=== PATIENT | male | born 1960 | race Caucasian/White ===

== ENCOUNTER 2022-08-24 11:18 | Inpatient (IN) | payer MEDICARE, OTHER ==
[2022-08-24] VITALS (23 sets, daily range): BP systolic 130–176; BP diastolic 90–165
[~2022-08-24] VITALS: Ht 188 cm; Wt 94.8 kg
[2022-08-24] MEDS ORDERED: SODIUM CHLORIDE 0.9% 1000ML 1,000 ML IV STA (11:39)
[2022-08-24] MEDS ORDERED: DILTIAZEM HCL 5 MG/ML 5 ML VIAL IV ONE ×2 (11:44→12:47)
[2022-08-24 12:31] LABS: BASOPHILS % 0.4 % (0.0-1.0); EOSINOPHILS % 0.1 % (0.0-6.0); HEMATOCRIT 39.9 % (38.2-49.6); HEMOGLOBIN 13.2 g/dL (14.0-18.0); LYMPHOCYTES # (AUTO) 1.3 (1.0-3.2); LYMPHOCYTES % 15.6 % (18.0-39.1); MEAN CORPUSCULAR HEMOGLOBIN 28.4 pg (28-32); MEAN CORPUSCULAR HGB CONC 33.1 g/dL (31-35); MEAN CORPUSCULAR VOLUME 85.8 fL (81-99); MONOCYTES # (AUTO) 0.4 (0.2-0.8); MONOCYTES % 5.1 % (4.4-11.3); NEUTROPHILS # (AUTO) 6.6 (2.1-6.9); NEUTROPHILS % 78.4 % (38.7-80.0); PLATELET COUNT 223 x10e3/uL (140-360); RED BLOOD COUNT 4.65 x10e6/uL (4.3-5.7); RED CELL DISTRIBUTION WIDTH 13.1 % (11.7-14.4)
[2022-08-24] MEDS ORDERED: MIDAZOLAM HCL 2 MG/2 ML VIAL ONE ×2 (12:38→19:45)
[2022-08-24] MEDS ORDERED: ETOMIDATE 2 MG/ML 10 ML INJ IV ONE (12:38)
[2022-08-24] MEDS ORDERED: VECURONIUM BROMIDE FOR INJ 20 MG VIAL ONE (12:38)
[2022-08-24] MEDS ORDERED: WATER STERILE 10 ML VIAL ONE (12:38)
[2022-08-24] MEDS ORDERED: SUCCINYLCHOLINE CHLORIDE 20 MG/ML 10ML VIAL ONE (12:38)
[2022-08-24 12:53] LABS: INR 1.07; PARTIAL THROMBOPLASTIN TIME 29.6 seconds (23.8-35.5); PROTHROMBIN TIME 14.9 seconds (11.9-14.5)
[2022-08-24 12:56] LABS: ALBUMIN 3.8 g/dL (3.5-5.0); ALBUMIN/GLOBULIN RATIO 1.5 (0.8-2.0); CALCIUM 9.1 mg/dL (8.4-10.2); CREATININE, SERUM 0.81 mg/dL (0.72-1.25); MAGNESIUM 1.6 MG/DL (1.3-2.1)
[2022-08-24 13:03] LABS: CREATINE KINASE MB 5.8 ng/mL (0-5.0)
[2022-08-24] MEDS ORDERED: FUROSEMIDE INJ 10 MG/ML 2 ML VIAL IV ONE (13:15)
[2022-08-24] MEDS ORDERED: DILTIAZEM HCL 60 MG TAB PO ONE (13:15)
[2022-08-24] MEDS ORDERED: DIGOXIN INJ 0.25 MG/ML 2 ML AMP IV ONE (13:30)
[2022-08-24] MEDS: ENOXAPARIN SODIUM INJ 100 MG/ML SYR SC SCH (13:50)
[2022-08-24] MEDS ORDERED: ONDANSETRON HCL INJ 2MG/ML 2ML 2 MG/ML VIAL IV PRN ×2 (14:15→15:15)
[2022-08-24 15:12] LABS: CLARITY,URINE CLEAR (CLEAR); COLOR,URINE YELLOW (YELLOW); LEUKOCYTE ESTERASE ,URINE NEGATIVE (NEGATIVE); NITRITE,URINE NEGATIVE (NEGATIVE)
[2022-08-24 15:13] LABS: KETONES,URINE NEGATIVE (NEGATIVE); PROTEIN,URINE DIPSTICK NEGATIVE (NEGATIVE); RBC,URINE 0-5 /HPF (0-5); URINE UROBILINOGEN 0.2 mg/dL (0.2 - 1); WBC,URINE (MAN) 0-5 /HPF (0-5)
[2022-08-24 15:14] LABS: AMPHETAMINES SCREEN,URINE NEGATIVE (NEGATIVE); PHENCYCLIDINE SCREEN,URINE NEGATIVE (NEGATIVE)
[2022-08-24 15:15] LABS: BENZODIAZEPINES SCREEN,URINE NEGATIVE (NEGATIVE)
[2022-08-24] MEDS ORDERED: TRAMADOL HCL 50 MG TAB PO PRN (15:15)
[2022-08-24] MEDS ORDERED: METOPROLOL TARTRATE INJ 1 MG/ML VIAL IV PRN (15:15)
[2022-08-24] MEDS ORDERED: ACETAMINOPHEN 325 MG TAB PO PRN ×2 (15:15→23:45)
[2022-08-24] MEDS ORDERED: FENTANYL 50 MCG/HR PATCH TOP PRN (16:21)
[2022-08-24] MEDS: POTASSIUM CHLORIDE 10MEQ EA PO SCH (17:19)
[2022-08-24] MEDS ORDERED: FUROSEMIDE INJ 10 MG/ML 2 ML VIAL IV SCH (18:00)
[2022-08-24] MEDS ORDERED: MAGNESIUM SULFATE 2GM/50ML 50 ML IV ONE (18:15)
[2022-08-24] MEDS ORDERED: METOPROLOL TARTRATE 25 MG TAB PO ONE (18:45)
[2022-08-24] MEDS ORDERED: AMIODARONE HCL 150 MG in DEXTROSE 5% 100ML 100 ML IV SCH (19:45)
[2022-08-24] MEDS ORDERED: AMIODARONE HCL 150 MG/100 ML BAG IV ONE (19:45)
[2022-08-24] MEDS: AMIODARONE 900MG 900 MG in Premix Bag 1 BAG IV SCH (20:15)
[2022-08-24 21:10] LABS: ANION GAP 17.5 mmol/L (8-16); CREATININE, SERUM 0.81 mg/dL (0.72-1.25); POTASSIUM 3.5 mmol/L (3.5-5.1)
[2022-08-24] MEDS ORDERED: POTASSIUM CHLORIDE 10MEQ/100ML 100 ML IV ONE (23:37)
[2022-08-24] MEDS ORDERED: GUAIFENESIN/DEXTROMETHORPHAN LIQD 5 ML UDC PO PRN (23:45)
[2022-08-24] MEDS ORDERED: MAGNESIUM/ALUMINUM/SIMETHICONE 30 ML UDC PO PRN (23:45)
[2022-08-24] MEDS ORDERED: DOCUSATE SODIUM 100 MG CAP PO PRN (23:45)
[2022-08-24] MEDS ORDERED: MELATONIN 3 MG TAB PO PRN (23:45)
[2022-08-24] MEDS ORDERED: METOCLOPRAMIDE HCL 10 MG/2ML VIAL IV PRN (23:45)
[2022-08-24] MEDS ORDERED: DEXTROSE 50% SYRINGE 50 ML IV PRN (23:45)
[2022-08-25] VITALS (91 sets, daily range): BP systolic 82–171; BP diastolic 52–132
[2022-08-25] MEDS: Doxycycline IV 100 MG in SODIUM CHLORIDE 0.9% 100 ML IV SCH ×2 (00:54→12:40)
[2022-08-25] MEDS: ENOXAPARIN SODIUM INJ 100 MG/ML SYR SC SCH ×2 (00:57→13:35)
[2022-08-25] MEDS ORDERED: MAGNESIUM SULF 1GRAM/DEXTROSE 100 ML IV ONE ×2 (01:43→01:45)
[2022-08-25] MEDS ORDERED: POTASSIUM CHLORIDE 20MEQ/100ML 100 ML ONE (01:44)
[2022-08-25] MEDS ORDERED: POTASSIUM CHLORIDE 20MEQ/100ML 100 ML IV ONE (01:45)
[2022-08-25] MEDS ORDERED: MIDAZOLAM HCL 2 MG/2 ML VIAL ONE ×3 (02:14→12:11)
[2022-08-25] MEDS ORDERED: AMIODARONE HCL 150 MG/100 ML BAG IV ONE (03:45)
[2022-08-25 05:07] LABS: BASOPHILS % 0.2 % (0.0-1.0); HEMATOCRIT 43.1 % (38.2-49.6); HEMOGLOBIN 13.4 g/dL (14.0-18.0); LYMPHOCYTES # (AUTO) 1.2 (1.0-3.2); LYMPHOCYTES % 10.7 % (18.0-39.1); MEAN CORPUSCULAR HEMOGLOBIN 28.4 pg (28-32); MEAN CORPUSCULAR HGB CONC 31.1 g/dL (31-35); MONOCYTES # (AUTO) 0.6 (0.2-0.8); MONOCYTES % 5.3 % (4.4-11.3); NEUTROPHILS # (AUTO) 9.2 (2.1-6.9); NEUTROPHILS % 83.3 % (38.7-80.0); PLATELET COUNT 232 x10e3/uL (140-360); RED BLOOD COUNT 4.72 x10e6/uL (4.3-5.7); RED CELL DISTRIBUTION WIDTH 12.9 % (11.7-14.4)
[2022-08-25 05:19] LABS: MEAN CORPUSCULAR VOLUME 91.3 fL (81-99)
[2022-08-25 05:25] LABS: ALBUMIN 3.7 g/dL (3.5-5.0); ALBUMIN/GLOBULIN RATIO 1.4 (0.8-2.0); ANION GAP 18.1 mmol/L (8-16); CALCIUM 8.8 mg/dL (8.4-10.2); CREATININE, SERUM 0.95 mg/dL (0.72-1.25)
[2022-08-25 05:27] LABS: POTASSIUM 5.1 mmol/L (3.5-5.1)
[2022-08-25 05:39] LABS: CHOL/HDL RATIO 3.1 (3.9-4.7)
[2022-08-25 06:11] LABS: MAGNESIUM 2.2 MG/DL (1.3-2.1)
[2022-08-25 06:20] LABS: CREATINE KINASE MB 2.9 ng/mL (0-5.0)
[2022-08-25 06:33] LABS: FREE THYROXINE INDEX 2.1081 (1.4-3.8); THYROID STIMULATING HORMONE 0.999 uIU/mL (0.350-4.940)
[2022-08-25] MEDS: MULTIVITAMINS/MINERALS TAB PO SCH (07:35)
[2022-08-25] MEDS: POTASSIUM CHLORIDE 10MEQ EA PO SCH ×2 (07:41→13:36)
[2022-08-25] MEDS: INSULIN REGULAR, HUMAN 100 UNIT/1 ML SQ SCH ×3 (07:54→16:42)
[2022-08-25] MEDS ORDERED: ASPIRIN 81 MG ENTERIC COATED PO SCH (09:00)
[2022-08-25] MEDS ORDERED: METOPROLOL TARTRATE 25 MG TAB PO SCH (09:00)
[2022-08-25] MEDS: LIDOCAINE 2GM/D5W 500ML 500 ML IV SCH (09:59)
[2022-08-25] MEDS: PROPOFOL IV EMULSION 10MG/ML 100 ML IV PRN ×2 (10:01→21:15)
[2022-08-25] MEDS ORDERED: SODIUM CHLORIDE 0.9% 1000ML 1,000 ML ONE (11:06)
[2022-08-25 13:14] LABS: ABG HCO3 26 mmol/L (22-26); ABG PCO2 39 mmHg (35-45); ABG PH 7.43 (7.35-7.45); ABG PO2 183 mmHg (80-105); ABG TCO2 27
[2022-08-25] MEDS: AMIODARONE 900MG 900 MG in Premix Bag 1 BAG IV SCH (17:17)
[2022-08-25] MEDS ORDERED: ACETAMINOPHEN 650 MG SUPP PR PRN (18:00)
[2022-08-25] MEDS: METOPROLOL TARTRATE 25 MG TAB PO SCH (20:48)
[2022-08-26] VITALS (93 sets, daily range): BP systolic 78–140; BP diastolic 63–104
[2022-08-26] MEDS: Doxycycline IV 100 MG in SODIUM CHLORIDE 0.9% 100 ML IV SCH ×3 (00:02→23:43)
[2022-08-26] MEDS: ENOXAPARIN SODIUM INJ 100 MG/ML SYR SC SCH ×2 (00:55→13:28)
[2022-08-26] MEDS ORDERED: SODIUM CHLORIDE 0.9% 1000ML 250 ML IV ONE (01:45)
[2022-08-26] MEDS ORDERED: SODIUM CHLORIDE 0.9% 500ML 500 ML ONE (02:02)
[2022-08-26] MEDS: FENTANYL 2000MCG/NS 250 250 ML IV PRN ×2 (03:26→19:48)
[2022-08-26] MEDS: INSULIN REGULAR, HUMAN 100 UNIT/1 ML SQ SCH ×4 (06:00→17:26)
[2022-08-26 07:03] LABS: BASOPHILS % 0.2 % (0.0-1.0); EOSINOPHILS % 0.1 % (0.0-6.0); HEMATOCRIT 44.2 % (38.2-49.6); HEMOGLOBIN 13.7 g/dL (14.0-18.0); LYMPHOCYTES # (AUTO) 2.3 (1.0-3.2); MEAN CORPUSCULAR HEMOGLOBIN 28.6 pg (28-32); MEAN CORPUSCULAR VOLUME 92.3 fL (81-99); MONOCYTES # (AUTO) 0.9 (0.2-0.8); NEUTROPHILS # (AUTO) 7.8 (2.1-6.9); NEUTROPHILS % 70.3 % (38.7-80.0); PLATELET COUNT 217 x10e3/uL (140-360); RED BLOOD COUNT 4.79 x10e6/uL (4.3-5.7); RED CELL DISTRIBUTION WIDTH 13.2 % (11.7-14.4)
[2022-08-26 07:23] LABS: ALBUMIN 3.5 g/dL (3.5-5.0); ALBUMIN/GLOBULIN RATIO 1.4 (0.8-2.0); ANION GAP 17.4 mmol/L (8-16); CALCIUM 8.5 mg/dL (8.4-10.2); MAGNESIUM 2.1 MG/DL (1.3-2.1); POTASSIUM 4.4 mmol/L (3.5-5.1)
[2022-08-26 07:38] LABS: CREATININE, SERUM 1.7 mg/dL (0.72-1.25)
[2022-08-26 07:57] LABS: ABG HCO3 23 mmol/L (22-26); ABG PCO2 39 mmHg (35-45); ABG PH 7.38 (7.35-7.45); ABG PO2 94 mmHg (80-105); ABG TCO2 24
[2022-08-26] MEDS ORDERED: FUROSEMIDE INJ 10 MG/ML 4 ML VIAL IV ONE (08:45)
[2022-08-26] MEDS: MULTIVITAMINS/MINERALS TAB PO SCH (08:48)
[2022-08-26] MEDS: ASPIRIN 81 MG CHEW TAB PO SCH (08:48)
[2022-08-26] MEDS: METOPROLOL TARTRATE 25 MG TAB PO SCH ×2 (08:50→20:47)
[2022-08-26] MEDS ORDERED: FUROSEMIDE INJ 10 MG/ML 4 ML VIAL ONE (08:57)
[2022-08-26] MEDS: POTASSIUM CHLORIDE 10MEQ EA PO SCH ×2 (09:00→14:23)
[2022-08-26] MEDS: LIDOCAINE 2GM/D5W 500ML 500 ML IV SCH ×2 (09:45→17:10)
[2022-08-26] MEDS: PROPOFOL IV EMULSION 10MG/ML 100 ML IV PRN ×2 (11:06→17:10)
[2022-08-26] MEDS ORDERED: LACTATED RINGER'S 1,000 ML INJ ONE (14:45)
[2022-08-27] VITALS (93 sets, daily range): BP systolic 116–294; BP diastolic 13–136
[2022-08-27] MEDS: INSULIN REGULAR, HUMAN 100 UNIT/1 ML SQ SCH ×4 (00:26→17:54)
[2022-08-27] MEDS: ENOXAPARIN SODIUM INJ 100 MG/ML SYR SC SCH (01:05)
[2022-08-27] MEDS: PROPOFOL IV EMULSION 10MG/ML 100 ML IV PRN ×2 (02:35→08:05)
[2022-08-27] MEDS ORDERED: AMIODARONE 900MG 500 ML IV ONE (03:31)
[2022-08-27 06:39] LABS: BASOPHILS % 0.2 % (0.0-1.0); EOSINOPHILS % 0.2 % (0.0-6.0); HEMATOCRIT 40.6 % (38.2-49.6); HEMOGLOBIN 13.3 g/dL (14.0-18.0); LYMPHOCYTES # (AUTO) 1.5 (1.0-3.2); LYMPHOCYTES % 16.5 % (18.0-39.1); MEAN CORPUSCULAR HEMOGLOBIN 28.4 pg (28-32); MEAN CORPUSCULAR HGB CONC 32.8 g/dL (31-35); MEAN CORPUSCULAR VOLUME 86.6 fL (81-99); MONOCYTES # (AUTO) 0.7 (0.2-0.8); MONOCYTES % 8.3 % (4.4-11.3); NEUTROPHILS # (AUTO) 6.5 (2.1-6.9); NEUTROPHILS % 74.3 % (38.7-80.0); PLATELET COUNT 184 x10e3/uL (140-360); RED BLOOD COUNT 4.69 x10e6/uL (4.3-5.7); RED CELL DISTRIBUTION WIDTH 13.2 % (11.7-14.4)
[2022-08-27 07:04] LABS: ALBUMIN 3.3 g/dL (3.5-5.0); ALBUMIN/GLOBULIN RATIO 1.3 (0.8-2.0); ANION GAP 12.9 mmol/L (8-16); CALCIUM 8.1 mg/dL (8.4-10.2); CREATININE, SERUM 1.04 mg/dL (0.72-1.25); POTASSIUM 3.9 mmol/L (3.5-5.1)
[2022-08-27 07:16] LABS: ABG PCO2 39 mmHg (35-45); ABG PH 7.42 (7.35-7.45)
[2022-08-27 07:17] LABS: ABG HCO3 25 mmol/L (22-26); ABG PO2 123 mmHg (80-105); ABG TCO2 26
[2022-08-27] MEDS: MULTIVITAMINS/MINERALS TAB PO SCH (09:00)
[2022-08-27] MEDS: ASPIRIN 81 MG CHEW TAB PO SCH (09:31)
[2022-08-27] MEDS: METOPROLOL TARTRATE 25 MG TAB PO SCH ×2 (09:32→20:36)
[2022-08-27] MEDS: KCL 20 MEQ PACKET/ ORAL SOLN PO SCH ×2 (10:00→17:00)
[2022-08-27] MEDS ORDERED: FENTANYL 25 MCG/HR PATCH TOP SCH (10:15)
[2022-08-27 10:45] LABS: ABG HCO3 25 mmol/L (22-26); ABG PCO2 36 mmHg (35-45); ABG PH 7.45 (7.35-7.45); ABG PO2 114 mmHg (80-105); ABG TCO2 26
[2022-08-27] MEDS ORDERED: POTASSIUM CHLORIDE 10MEQ/100ML 100 ML IV ONE (11:30)
[2022-08-27] MEDS: Doxycycline IV 100 MG in SODIUM CHLORIDE 0.9% 100 ML IV SCH (12:17)
[2022-08-27] MEDS ORDERED: MAGNESIUM SULF 1GRAM/DEXTROSE 100 ML IV ONE (12:30)
[2022-08-27] MEDS ORDERED: CEPACOL SORE THROAT LOZENGES PO PRN (14:15)
[2022-08-27] MEDS ORDERED: HYDROMORPHONE 1MG/1ML INJ IV PRN (14:45)
[2022-08-27] MEDS ORDERED: FENTANYL 25 MCG/HR PATCH TOP ONE (15:30)
[2022-08-27] MEDS: POTASSIUM CHLORIDE 20MEQ/100ML 200 ML IV PRN (17:38)
[2022-08-27] MEDS: FUROSEMIDE INJ 10 MG/ML 4 ML VIAL IV SCH (17:38)
[2022-08-27] MEDS: Morphine 2mg Syringe 2 MG/ML SYR IV PRN (17:38)
[2022-08-27] MEDS ORDERED: MAGNESIUM SULFATE 2GM/50ML 50 ML IV ONE (19:00)
[2022-08-27] MEDS ORDERED: SODIUM CHLORIDE 0.9% 1000ML 1,000 ML IV SCH (23:55)
[2022-08-28] VITALS (91 sets, daily range): BP systolic 95–205; BP diastolic 49–128
[2022-08-28] MEDS: Doxycycline IV 100 MG in SODIUM CHLORIDE 0.9% 100 ML IV SCH ×2 (00:28→13:35)
[2022-08-28] MEDS: Morphine 2mg Syringe 2 MG/ML SYR IV PRN (03:38)
[2022-08-28] MEDS ORDERED: FAMOTIDINE 20 MG/2 ML VIAL IV STA (04:41)
[2022-08-28 04:56] LABS: BASOPHILS % 0.2 % (0.0-1.0); EOSINOPHILS % 0.1 % (0.0-6.0); HEMATOCRIT 44.2 % (38.2-49.6); HEMOGLOBIN 13.6 g/dL (14.0-18.0); LYMPHOCYTES # (AUTO) 1.4 (1.0-3.2); LYMPHOCYTES % 14.4 % (18.0-39.1); MEAN CORPUSCULAR HEMOGLOBIN 28.5 pg (28-32); MEAN CORPUSCULAR HGB CONC 30.8 g/dL (31-35); MEAN CORPUSCULAR VOLUME 92.5 fL (81-99); MONOCYTES # (AUTO) 0.8 (0.2-0.8); MONOCYTES % 8.3 % (4.4-11.3); NEUTROPHILS # (AUTO) 7.3 (2.1-6.9); NEUTROPHILS % 76.6 % (38.7-80.0); PLATELET COUNT 173 x10e3/uL (140-360); RED BLOOD COUNT 4.78 x10e6/uL (4.3-5.7); RED CELL DISTRIBUTION WIDTH 12.7 % (11.7-14.4)
[2022-08-28 05:17] LABS: ALBUMIN 3.5 g/dL (3.5-5.0); ALBUMIN/GLOBULIN RATIO 1.3 (0.8-2.0); ANION GAP 15.9 mmol/L (8-16); CALCIUM 8.3 mg/dL (8.4-10.2); CREATININE, SERUM 0.77 mg/dL (0.72-1.25); MAGNESIUM 2.1 MG/DL (1.3-2.1); PHOSPHORUS 2.6 MG/DL (2.3-4.7); POTASSIUM 3.9 mmol/L (3.5-5.1)
[2022-08-28] MEDS: INSULIN REGULAR, HUMAN 100 UNIT/1 ML SQ SCH ×4 (06:00→18:00)
[2022-08-28] MEDS: FUROSEMIDE INJ 10 MG/ML 4 ML VIAL IV SCH ×2 (06:12→18:01)
[2022-08-28] MEDS ORDERED: PROPOFOL IV EMULSION 10MG/ML 100 ML ONE (07:34)
[2022-08-28] MEDS ORDERED: FENTANYL 2000MCG/NS 250 250 ML ONE (07:35)
[2022-08-28 08:28] LABS: ABG HCO3 27 mmol/L (22-26); ABG PCO2 39 mmHg (35-45); ABG PH 7.45 (7.35-7.45); ABG PO2 111 mmHg (80-105); ABG TCO2 28
[2022-08-28] MEDS: ASPIRIN 81 MG CHEW TAB PO SCH (08:33)
[2022-08-28] MEDS: METOPROLOL TARTRATE 25 MG TAB PO SCH ×2 (08:33→21:00)
[2022-08-28] MEDS: KCL 20 MEQ PACKET/ ORAL SOLN PO SCH ×2 (08:34→16:02)
[2022-08-28] MEDS: MULTIVITAMINS/MINERALS TAB PO SCH (08:34)
[2022-08-28] MEDS: LIDOCAINE 2GM/D5W 500ML 500 ML IV SCH (09:14)
[2022-08-28] MEDS: PROPOFOL IV EMULSION 10MG/ML 100 ML IV PRN ×5 (10:14→20:39)
[2022-08-28] MEDS ORDERED: MIDAZOLAM HCL 2 MG/2 ML VIAL ONE (12:09)
[2022-08-28] MEDS ORDERED: VERAPAMIL HCL 2.5 MG/ML 2 ML VIAL ONE (12:09)
[2022-08-28] MEDS ORDERED: HEPARIN SOD (PORCINE) 1000 UNIT/ML 30ML ONE (12:09)
[2022-08-28] MEDS ORDERED: LIDOCAINE HCL 1% LOCAL INJ 20 ML VIAL ONE (12:10)
[2022-08-28] MEDS ORDERED: IOPAMIDOL 370 MG/ML 100 ML INFUS..BTL INJ ONE (12:10)
[2022-08-28] MEDS ORDERED: FENTANYL CITRATE/PF 100MCG/2 ML INJ ONE (12:10)
[2022-08-28] MEDS ORDERED: HEPARIN SOD/SOD CHLORIDE 2,000 ML ONE (12:10)
[2022-08-28] MEDS ORDERED: NITROGLYCERIN/D5W 200 MCG/ML 250 ML ONE (12:10)
[2022-08-28] MEDS ORDERED: AMIODARONE 900MG 900 MG in Premix Bag 1 BAG IV SCH ×2 (20:30→20:45)
[2022-08-28] MEDS ORDERED: AMIODARONE 900MG 500 ML IV ONE (20:31)
[2022-08-28] MEDS ORDERED: MIDAZOLAM HCL 2 MG/2 ML VIAL IV STA (23:30)
[2022-08-29] VITALS (88 sets, daily range): BP systolic 79–188; BP diastolic 46–167
[2022-08-29] MEDS ORDERED: MIDAZOLAM HCL 2 MG/2 ML VIAL IV SCH
[2022-08-29 00:43] LABS: CALCIUM 7.7 mg/dL (8.4-10.2); MAGNESIUM 1.6 MG/DL (1.3-2.1)
[2022-08-29] MEDS: MIDAZOLAM HCL 5MG/ML 10ML VIAL 100 ML IV PRN ×2 (01:01→06:21)
[2022-08-29] MEDS ORDERED: MAGNESIUM SULFATE 2GM/50ML 50 ML IV ONE ×2 (02:00→04:15)
[2022-08-29] MEDS ORDERED: POTASSIUM CHLORIDE 20MEQ/100ML 100 ML IV ONE (02:00)
[2022-08-29] MEDS ORDERED: CALCIUM GLUC 1 G/50 ML NACL 50 ML IV ONE (02:00)
[2022-08-29] MEDS: FENTANYL 2000MCG/NS 250 250 ML IV PRN (03:33)
[2022-08-29] MEDS: POTASSIUM CHLORIDE 20MEQ/100ML 100 ML IV SCH ×3 (04:31→10:22)
[2022-08-29 05:38] LABS: BASOPHILS % 0.1 % (0.0-1.0); EOSINOPHILS % 0.3 % (0.0-6.0); HEMATOCRIT 38.4 % (38.2-49.6); HEMOGLOBIN 12.8 g/dL (14.0-18.0); LYMPHOCYTES # (AUTO) 1.1 (1.0-3.2); LYMPHOCYTES % 12.2 % (18.0-39.1); MEAN CORPUSCULAR HEMOGLOBIN 28.6 pg (28-32); MEAN CORPUSCULAR HGB CONC 33.3 g/dL (31-35); MEAN CORPUSCULAR VOLUME 85.7 fL (81-99); MONOCYTES # (AUTO) 0.7 (0.2-0.8); MONOCYTES % 7.1 % (4.4-11.3); NEUTROPHILS # (AUTO) 7.4 (2.1-6.9); NEUTROPHILS % 79.7 % (38.7-80.0); PLATELET COUNT 165 x10e3/uL (140-360); RED BLOOD COUNT 4.48 x10e6/uL (4.3-5.7)
[2022-08-29 06:00] LABS: ALBUMIN 2.9 g/dL (3.5-5.0); ALBUMIN/GLOBULIN RATIO 1.2 (0.8-2.0); ANION GAP 13.8 mmol/L (8-16); CALCIUM 8.1 mg/dL (8.4-10.2); CREATININE, SERUM 0.7 mg/dL (0.72-1.25); POTASSIUM 3.8 mmol/L (3.5-5.1)
[2022-08-29] MEDS: INSULIN REGULAR, HUMAN 100 UNIT/1 ML SQ SCH ×4 (06:00→18:00)
[2022-08-29] MEDS: FUROSEMIDE INJ 10 MG/ML 4 ML VIAL IV SCH (06:11)
[2022-08-29] MEDS ORDERED: ONDANSETRON HCL INJ 2MG/ML 2ML 2 MG/ML VIAL IV PRN (08:30)
[2022-08-29] MEDS: ASPIRIN 81 MG CHEW TAB PO SCH (08:36)
[2022-08-29] MEDS: KCL 20 MEQ PACKET/ ORAL SOLN PO SCH ×2 (08:37→17:00)
[2022-08-29] MEDS: MULTIVITAMINS/MINERALS TAB PO SCH (08:37)
[2022-08-29] MEDS: LIDOCAINE 2GM/D5W 500ML 500 ML IV SCH (08:49)
[2022-08-29 09:38] LABS: ABG PCO2 39 mmHg (35-45); ABG PH 7.51 (7.35-7.45); ABG PO2 66 mmHg (80-105)
[2022-08-29 09:39] LABS: ABG HCO3 31 mmol/L (22-26); ABG TCO2 32
[2022-08-29] MEDS: PROPOFOL IV EMULSION 10MG/ML 100 ML IV PRN ×4 (10:23→21:10)
[2022-08-29] MEDS: ENOXAPARIN SODIUM INJ 100 MG/ML SYR SC SCH (13:11)
[2022-08-29] MEDS ORDERED: VASOPRESSIN 60 UNIT in DEXTROSE 5% 50ML 57 ML IV PRN (18:15)
[2022-08-30] VITALS (74 sets, daily range): BP systolic 71–145; BP diastolic 45–98
[2022-08-30] MEDS: FENTANYL 2000MCG/NS 250 250 ML IV PRN ×2 (00:01→19:09)
[2022-08-30] MEDS: ENOXAPARIN SODIUM INJ 100 MG/ML SYR SC SCH (02:10)
[2022-08-30] MEDS: LIDOCAINE 2GM/D5W 500ML 500 ML IV SCH ×2 (02:17→19:07)
[2022-08-30] MEDS: PROPOFOL IV EMULSION 10MG/ML 100 ML IV PRN ×5 (02:40→19:07)
[2022-08-30] MEDS: FUROSEMIDE INJ 10 MG/ML 4 ML VIAL IV SCH ×2 (06:00→17:57)
[2022-08-30] MEDS: INSULIN REGULAR, HUMAN 100 UNIT/1 ML SQ SCH ×4 (06:00→17:59)
[2022-08-30 06:41] LABS: BASOPHILS % 0.1 % (0.0-1.0); EOSINOPHILS # (AUTO) 0.1 (0.0-0.4); EOSINOPHILS % 1.5 % (0.0-6.0); HEMOGLOBIN 12.5 g/dL (14.0-18.0); LYMPHOCYTES # (AUTO) 1.6 (1.0-3.2); LYMPHOCYTES % 20.2 % (18.0-39.1); MEAN CORPUSCULAR HEMOGLOBIN 28.7 pg (28-32); MEAN CORPUSCULAR HGB CONC 33.8 g/dL (31-35); MEAN CORPUSCULAR VOLUME 84.9 fL (81-99); MONOCYTES # (AUTO) 0.6 (0.2-0.8); MONOCYTES % 7.6 % (4.4-11.3); NEUTROPHILS # (AUTO) 5.5 (2.1-6.9); NEUTROPHILS % 70.3 % (38.7-80.0); PLATELET COUNT 156 x10e3/uL (140-360); RED BLOOD COUNT 4.36 x10e6/uL (4.3-5.7); RED CELL DISTRIBUTION WIDTH 13.2 % (11.7-14.4)
[2022-08-30 06:58] LABS: ALBUMIN 2.7 g/dL (3.5-5.0); ALBUMIN/GLOBULIN RATIO 1.1 (0.8-2.0); ANION GAP 12.2 mmol/L (8-16); CALCIUM 7.9 mg/dL (8.4-10.2); CREATININE, SERUM 0.69 mg/dL (0.72-1.25); POTASSIUM 3.2 mmol/L (3.5-5.1)
[2022-08-30 07:49] LABS: ABG HCO3 30 mmol/L (22-26); ABG PCO2 38 mmHg (35-45); ABG PH 7.51 (7.35-7.45); ABG PO2 111 mmHg (80-105); ABG TCO2 31
[2022-08-30] MEDS: ASPIRIN 81 MG CHEW TAB PO SCH (08:16)
[2022-08-30] MEDS: KCL 20 MEQ PACKET/ ORAL SOLN PO SCH ×2 (08:16→16:43)
[2022-08-30] MEDS: MULTIVITAMINS/MINERALS TAB PO SCH (08:16)
[2022-08-30 10:16] LABS: MAGNESIUM 1.8 MG/DL (1.3-2.1)
[2022-08-30] MEDS: POTASSIUM CHLORIDE 20MEQ/100ML 100 ML IV SCH ×3 (10:39→12:49)
[2022-08-30] MEDS ORDERED: ENOXAPARIN SODIUM INJ 100 MG/ML SYR SC SCH (13:30)
[2022-08-31] VITALS (68 sets, daily range): BP systolic 73–168; BP diastolic 52–121
[2022-08-31] MEDS: PROPOFOL IV EMULSION 10MG/ML 100 ML IV PRN ×7 (01:37→20:20)
[2022-08-31] MEDS: FUROSEMIDE INJ 10 MG/ML 4 ML VIAL IV SCH ×2 (05:25→17:19)
[2022-08-31] MEDS: INSULIN REGULAR, HUMAN 100 UNIT/1 ML SQ SCH ×4 (05:25→17:43)
[2022-08-31 06:39] LABS: BASOPHILS % 0.2 % (0.0-1.0); EOSINOPHILS # (AUTO) 0.1 (0.0-0.4); EOSINOPHILS % 1.1 % (0.0-6.0); HEMATOCRIT 44.7 % (38.2-49.6); HEMOGLOBIN 14.6 g/dL (14.0-18.0); LYMPHOCYTES # (AUTO) 1.2 (1.0-3.2); LYMPHOCYTES % 12.7 % (18.0-39.1); MEAN CORPUSCULAR HGB CONC 32.7 g/dL (31-35); MEAN CORPUSCULAR VOLUME 85.6 fL (81-99); MONOCYTES # (AUTO) 0.8 (0.2-0.8); MONOCYTES % 8.4 % (4.4-11.3); NEUTROPHILS # (AUTO) 7.1 (2.1-6.9); NEUTROPHILS % 77.1 % (38.7-80.0); PLATELET COUNT 169 x10e3/uL (140-360); RED BLOOD COUNT 5.22 x10e6/uL (4.3-5.7); RED CELL DISTRIBUTION WIDTH 13.1 % (11.7-14.4)
[2022-08-31 07:37] LABS: ALBUMIN 2.7 g/dL (3.5-5.0); ALBUMIN/GLOBULIN RATIO 0.8 (0.8-2.0); ANION GAP 14.5 mmol/L (8-16); CALCIUM 8.6 mg/dL (8.4-10.2); CREATININE, SERUM 0.79 mg/dL (0.72-1.25); POTASSIUM 3.5 mmol/L (3.5-5.1)
[2022-08-31] MEDS: MULTIVITAMINS/MINERALS TAB PO SCH (08:21)
[2022-08-31] MEDS: KCL 20 MEQ PACKET/ ORAL SOLN PO SCH ×2 (08:21→17:00)
[2022-08-31] MEDS: ASPIRIN 81 MG CHEW TAB PO SCH (08:21)
[2022-08-31] MEDS ORDERED: GENTAMICIN SULFATE 40 MG/ML 2 ML VIAL ONE (08:26)
[2022-08-31] MEDS ORDERED: LIDOCAINE HCL/EPINEPHRINE/PF 10 ML VIAL ONE (08:27)
[2022-08-31] MEDS ORDERED: SODIUM CHLORIDE 0.9% 250ML 250 ML ONE (08:28)
[2022-08-31] MEDS ORDERED: SODIUM CHLORIDE 0.9% 1000ML 2,000 ML ONE (08:28)
[2022-08-31] MEDS ORDERED: SODIUM CHLORIDE 0.9% 500ML 500 ML ONE (08:28)
[2022-08-31] MEDS ORDERED: Vancomycin IV 1 GM VIAL ONE (08:28)
[2022-08-31] MEDS ORDERED: POTASSIUM CHLORIDE 20MEQ/100ML 200 ML IV ONE (11:45)
[2022-08-31] MEDS ORDERED: MAGNESIUM SULFATE 2GM/50ML 50 ML IV ONE (12:00)
[2022-08-31 12:24] LABS: ABG HCO3 31 mmol/L (22-26); ABG PCO2 43 mmHg (35-45); ABG PH 7.46 (7.35-7.45); ABG PO2 85 mmHg (80-105); ABG TCO2 32
[2022-08-31 12:25] LABS: ABG HCO3 31 mmol/L (22-26); ABG PCO2 42 mmHg (35-45); ABG PH 7.48 (7.35-7.45); ABG PO2 119 mmHg (80-105); ABG TCO2 32
[2022-08-31 18:13] LABS: INR 1.03; PROTHROMBIN TIME 13.7 seconds (11.9-14.5)
[2022-08-31] MEDS: HEPARIN 25,000 UNIT 1,000 UNIT in DEXTROSE 5% 250ML 250 ML IV SCH (18:55)
[2022-08-31] MEDS: FENTANYL 2000MCG/NS 250 250 ML IV PRN (22:14)
[2022-09-01] VITALS (84 sets, daily range): BP systolic 94–172; BP diastolic 61–127
[2022-09-01] MEDS ORDERED: LIDOCAINE 2GM/D5W 500ML 500 ML IV SCH (02:30)
[2022-09-01 02:42] LABS: ANION GAP 17.6 mmol/L (8-16); CREATININE, SERUM 0.75 mg/dL (0.72-1.25); POTASSIUM 3.6 mmol/L (3.5-5.1)
[2022-09-01] MEDS ORDERED: MAGNESIUM SULFATE 2GM/50ML 50 ML IV ONE (02:45)
[2022-09-01] MEDS ORDERED: POTASSIUM CHLORIDE 20MEQ/100ML 100 ML IV ONE (02:45)
[2022-09-01] MEDS ORDERED: POTASSIUM CHLORIDE 20MEQ/100ML 100 ML ONE (03:05)
[2022-09-01] MEDS ORDERED: MAGNESIUM SULFATE 2GM/50ML 0 ML IV ONE (03:05)
[2022-09-01] MEDS: PROPOFOL IV EMULSION 10MG/ML 100 ML IV PRN ×2 (03:46→03:47)
[2022-09-01 05:04] LABS: BASOPHILS % 0.1 % (0.0-1.0); EOSINOPHILS # (AUTO) 0.2 (0.0-0.4); EOSINOPHILS % 1.5 % (0.0-6.0); HEMATOCRIT 42.9 % (38.2-49.6); HEMOGLOBIN 13.5 g/dL (14.0-18.0); LYMPHOCYTES # (AUTO) 1.2 (1.0-3.2); LYMPHOCYTES % 11.8 % (18.0-39.1); MEAN CORPUSCULAR HEMOGLOBIN 28.5 pg (28-32); MEAN CORPUSCULAR HGB CONC 31.5 g/dL (31-35); MEAN CORPUSCULAR VOLUME 90.5 fL (81-99); MONOCYTES % 9.4 % (4.4-11.3); NEUTROPHILS # (AUTO) 7.9 (2.1-6.9); NEUTROPHILS % 76.9 % (38.7-80.0); PLATELET COUNT 164 x10e3/uL (140-360); RED BLOOD COUNT 4.74 x10e6/uL (4.3-5.7); RED CELL DISTRIBUTION WIDTH 12.7 % (11.7-14.4)
[2022-09-01] MEDS: INSULIN REGULAR, HUMAN 100 UNIT/1 ML SQ SCH ×5 (05:59→21:08)
[2022-09-01] MEDS: FUROSEMIDE INJ 10 MG/ML 4 ML VIAL IV SCH ×2 (05:59→17:31)
[2022-09-01] MEDS: ASPIRIN 81 MG CHEW TAB PO SCH (07:34)
[2022-09-01] MEDS: KCL 20 MEQ PACKET/ ORAL SOLN PO SCH ×2 (07:34→16:25)
[2022-09-01] MEDS: MULTIVITAMINS/MINERALS TAB PO SCH (07:34)
[2022-09-01 08:04] LABS: ALBUMIN 2.7 g/dL (3.5-5.0); ALBUMIN/GLOBULIN RATIO 0.7 (0.8-2.0); ANION GAP 18.6 mmol/L (8-16); CALCIUM 8.9 mg/dL (8.4-10.2); CREATININE, SERUM 0.81 mg/dL (0.72-1.25); POTASSIUM 3.6 mmol/L (3.5-5.1)
[2022-09-01] MEDS ORDERED: POTASSIUM CHLORIDE 20MEQ/100ML 200 ML IV ONE (08:15)
[2022-09-01 09:20] LABS: ABG HCO3 31 mmol/L (22-26); ABG PCO2 40 mmHg (35-45); ABG PO2 130 mmHg (80-105); ABG TCO2 33
[2022-09-01] MEDS: MAGNESIUM SULFATE 2GM/50ML 50 ML IV ONE ×2 (09:32→20:21)
[2022-09-01] MEDS: LIDOCAINE 2GM/D5W 500ML 500 ML IV SCH (09:45)
[2022-09-01] MEDS: CARVEDILOL 3.125 MG TAB PO SCH (16:26)
[2022-09-01] MEDS: HEPARIN 25,000 UNIT 1,000 UNIT in DEXTROSE 5% 250ML 250 ML IV SCH (17:51)
[2022-09-02] VITALS (72 sets, daily range): BP systolic 101–182; BP diastolic 55–106
[2022-09-02] MEDS: SUCRALFATE 1 GM/10 ML SUSP PO SCH ×5 (00:41→22:31)
[2022-09-02] MEDS: FUROSEMIDE INJ 10 MG/ML 4 ML VIAL IV SCH ×2 (05:17→17:25)
[2022-09-02] MEDS: INSULIN REGULAR, HUMAN 100 UNIT/1 ML SQ SCH ×4 (07:30→21:33)
[2022-09-02 07:35] LABS: BASOPHILS % 0.3 % (0.0-1.0); EOSINOPHILS # (AUTO) 0.1 (0.0-0.4); EOSINOPHILS % 0.8 % (0.0-6.0); HEMATOCRIT 45.9 % (38.2-49.6); HEMOGLOBIN 14.6 g/dL (14.0-18.0); LYMPHOCYTES # (AUTO) 1.6 (1.0-3.2); LYMPHOCYTES % 13.3 % (18.0-39.1); MEAN CORPUSCULAR HEMOGLOBIN 27.9 pg (28-32); MEAN CORPUSCULAR HGB CONC 31.8 g/dL (31-35); MEAN CORPUSCULAR VOLUME 87.8 fL (81-99); MONOCYTES # (AUTO) 1.1 (0.2-0.8); MONOCYTES % 9.2 % (4.4-11.3); NEUTROPHILS # (AUTO) 9.1 (2.1-6.9); NEUTROPHILS % 76.1 % (38.7-80.0); PLATELET COUNT 187 x10e3/uL (140-360); RED BLOOD COUNT 5.23 x10e6/uL (4.3-5.7); RED CELL DISTRIBUTION WIDTH 12.3 % (11.7-14.4)
[2022-09-02 08:14] LABS: ALBUMIN 2.9 g/dL (3.5-5.0); ALBUMIN/GLOBULIN RATIO 0.8 (0.8-2.0); ANION GAP 19.9 mmol/L (8-16); CALCIUM 8.8 mg/dL (8.4-10.2); CREATININE, SERUM 0.67 mg/dL (0.72-1.25)
[2022-09-02 08:24] LABS: POTASSIUM 2.9 mmol/L (3.5-5.1)
[2022-09-02] MEDS: POTASSIUM CHLORIDE 20MEQ/100ML 200 ML IV PRN (08:34)
[2022-09-02] MEDS: MULTIVITAMINS/MINERALS TAB PO SCH (08:43)
[2022-09-02] MEDS: ASPIRIN 81 MG CHEW TAB PO SCH (08:44)
[2022-09-02] MEDS: CARVEDILOL 3.125 MG TAB PO SCH ×2 (08:44→17:23)
[2022-09-02] MEDS: KCL 20 MEQ PACKET/ ORAL SOLN PO SCH ×2 (08:45→17:22)
[2022-09-02] MEDS: LIDOCAINE 2GM/D5W 500ML 500 ML IV SCH (10:34)
[2022-09-02] MEDS ORDERED: POTASSIUM CHLORIDE 20MEQ/100ML 200 ML IV ONE ×2 (11:30→12:45)
[2022-09-02] MEDS: FAMOTIDINE 20 MG TAB PO ONE ×2 (12:44→13:35)
[2022-09-02] MEDS: MEXILETINE 200 MG PO SCH ×2 (13:50→21:38)
[2022-09-02] MEDS ORDERED: FENTANYL 75MCG/HR PATCH TD SCH (15:10)
[2022-09-02] MEDS: LORAZEPAM 0.5 MG TAB PO PRN ×2 (15:21→22:44)
[2022-09-02] MEDS: FAMOTIDINE 20 MG TAB PO SCH (16:04)
[2022-09-02] MEDS: HEPARIN 25,000 UNIT 1,000 UNIT in DEXTROSE 5% 250ML 250 ML IV SCH (16:17)
[2022-09-02 18:10] LABS: MAGNESIUM 1.8 MG/DL (1.3-2.1); POTASSIUM 3.9 mmol/L (3.5-5.1)
[2022-09-02] MEDS ORDERED: POTASSIUM CHLORIDE 20MEQ/100ML 100 ML IV ONE (20:00)
[2022-09-02] MEDS ORDERED: MAGNESIUM SULFATE 2GM/50ML 50 ML IV ONE (20:00)
[2022-09-03] VITALS (7 sets, daily range): BP systolic 107–139; BP diastolic 68–105
[2022-09-03] MEDS: FUROSEMIDE INJ 10 MG/ML 4 ML VIAL IV SCH ×2 (05:33→17:04)
[2022-09-03] MEDS: MEXILETINE 200 MG PO SCH (05:33)
[2022-09-03 06:09] LABS: BASOPHILS % 0.3 % (0.0-1.0); EOSINOPHILS # (AUTO) 0.1 (0.0-0.4); EOSINOPHILS % 0.8 % (0.0-6.0); LYMPHOCYTES # (AUTO) 1.7 (1.0-3.2); LYMPHOCYTES % 16.7 % (18.0-39.1); MEAN CORPUSCULAR HEMOGLOBIN 28.2 pg (28-32); MEAN CORPUSCULAR HGB CONC 31.9 g/dL (31-35); MEAN CORPUSCULAR VOLUME 88.5 fL (81-99); MONOCYTES # (AUTO) 1.1 (0.2-0.8); MONOCYTES % 10.8 % (4.4-11.3); NEUTROPHILS # (AUTO) 7.4 (2.1-6.9); NEUTROPHILS % 71.1 % (38.7-80.0); PLATELET COUNT 224 x10e3/uL (140-360); RED BLOOD COUNT 5.31 x10e6/uL (4.3-5.7); RED CELL DISTRIBUTION WIDTH 12.3 % (11.7-14.4)
[2022-09-03 06:35] LABS: ALBUMIN 2.7 g/dL (3.5-5.0); ALBUMIN/GLOBULIN RATIO 0.7 (0.8-2.0); ANION GAP 17.6 mmol/L (8-16); CALCIUM 8.7 mg/dL (8.4-10.2); CREATININE, SERUM 0.66 mg/dL (0.72-1.25); MAGNESIUM 1.9 MG/DL (1.3-2.1); PHOSPHORUS 3.3 MG/DL (2.3-4.7); POTASSIUM 3.6 mmol/L (3.5-5.1)
[2022-09-03] MEDS: SUCRALFATE 1 GM/10 ML SUSP PO SCH ×4 (07:37→20:16)
[2022-09-03] MEDS: FAMOTIDINE 20 MG TAB PO SCH ×2 (07:37→16:52)
[2022-09-03] MEDS: INSULIN REGULAR, HUMAN 100 UNIT/1 ML SQ SCH ×4 (07:40→20:21)
[2022-09-03] MEDS: MULTIVITAMINS/MINERALS TAB PO SCH (08:30)
[2022-09-03] MEDS: ASPIRIN 81 MG CHEW TAB PO SCH (08:30)
[2022-09-03] MEDS: CARVEDILOL 3.125 MG TAB PO SCH ×2 (08:31→16:53)
[2022-09-03] MEDS: KCL 20 MEQ PACKET/ ORAL SOLN PO SCH ×2 (08:32→15:26)
[2022-09-03] MEDS: MEXILETINE HCL 200 MG CAPSULE PO SCH ×2 (14:02→20:16)
[2022-09-03] MEDS ORDERED: FENTANYL 100 MCG/HR PATCH TOP SCH (15:00)
[2022-09-03] MEDS: HEPARIN 25,000 UNIT 1,000 UNIT in DEXTROSE 5% 250ML 250 ML IV SCH (15:07)
[2022-09-03] MEDS: POTASSIUM CHLORIDE 20MEQ/100ML 200 ML IV PRN (16:52)
[2022-09-03] MEDS: APIXABAN 5 MG TABLET PO SCH (16:54)
[2022-09-03] MEDS ORDERED: BISACODYL 10 MG SUPP PR PRN (21:00)
[2022-09-03] MEDS: DOCUSATE SODIUM 100 MG CAP PO SCH (23:05)
[2022-09-03] MEDS: LORAZEPAM 0.5 MG TAB PO PRN (23:08)
[2022-09-04 02:21] VITALS: BP 115/82
[2022-09-04 02:34] VITALS: BP 115/82
[2022-09-04] MEDS: MEXILETINE HCL 200 MG CAPSULE PO SCH ×2 (05:29→14:00)
[2022-09-04] MEDS: FUROSEMIDE INJ 10 MG/ML 4 ML VIAL IV SCH (05:32)
[2022-09-04 05:47] VITALS: BP 117/90
[2022-09-04 06:15] LABS: BASOPHILS % 0.3 % (0.0-1.0); EOSINOPHILS # (AUTO) 0.1 (0.0-0.4); EOSINOPHILS % 1.4 % (0.0-6.0); HEMATOCRIT 45.6 % (38.2-49.6); HEMOGLOBIN 14.6 g/dL (14.0-18.0); LYMPHOCYTES # (AUTO) 1.8 (1.0-3.2); MEAN CORPUSCULAR HEMOGLOBIN 28.5 pg (28-32); MEAN CORPUSCULAR VOLUME 88.9 fL (81-99); MONOCYTES # (AUTO) 1.1 (0.2-0.8); MONOCYTES % 10.7 % (4.4-11.3); NEUTROPHILS # (AUTO) 7.1 (2.1-6.9); NEUTROPHILS % 69.2 % (38.7-80.0); PLATELET COUNT 266 x10e3/uL (140-360); RED BLOOD COUNT 5.13 x10e6/uL (4.3-5.7); RED CELL DISTRIBUTION WIDTH 12.1 % (11.7-14.4)
[2022-09-04 06:52] LABS: ALBUMIN 2.7 g/dL (3.5-5.0); ANION GAP 15.3 mmol/L (8-16); CALCIUM 8.9 mg/dL (8.4-10.2); CREATININE, SERUM 0.71 mg/dL (0.72-1.25); POTASSIUM 3.3 mmol/L (3.5-5.1)
[2022-09-04 06:53] LABS: ALBUMIN/GLOBULIN RATIO 0.8 (0.8-2.0)
[2022-09-04] MEDS: SUCRALFATE 1 GM/10 ML SUSP PO SCH ×2 (07:30→11:30)
[2022-09-04] MEDS: INSULIN REGULAR, HUMAN 100 UNIT/1 ML SQ SCH ×2 (07:30→11:30)
[2022-09-04 08:14] VITALS: BP 152/92
[2022-09-04 08:44] VITALS: BP 152/98
[2022-09-04] MEDS ORDERED: POLYETHYLENE GLYCOL 3350 17 GM PACK PO SCH (09:00)
[2022-09-04] MEDS ORDERED: SENNA-S TABLET PO SCH (09:00)
[2022-09-04] MEDS ORDERED: POTASSIUM CHLORIDE 20 MEQ TAB CR PO ONE (10:15)
[2022-09-04] MEDS: MULTIVITAMINS/MINERALS TAB PO SCH (10:19)
[2022-09-04] MEDS: DOCUSATE SODIUM 100 MG CAP PO SCH ×2 (10:19→15:00)
[2022-09-04] MEDS: KCL 20 MEQ PACKET/ ORAL SOLN PO SCH (10:19)
[2022-09-04] MEDS: ASPIRIN 81 MG CHEW TAB PO SCH (10:19)
[2022-09-04] MEDS: APIXABAN 5 MG TABLET PO SCH (10:20)
[2022-09-04] MEDS: FAMOTIDINE 20 MG TAB PO SCH (10:20)
[2022-09-04] MEDS: CARVEDILOL 3.125 MG TAB PO SCH (10:21)
[2022-09-04 12:15] VITALS: BP 131/80
[2022-09-04] MEDS ORDERED: Multivitamins/Minerals PO (14:55)
[2022-09-04] MEDS ORDERED: PANTOPRAZOLE SO40 MG PO (14:55)
[2022-09-04] MEDS ORDERED: FAMOTIDINE20 MG PO (14:55)
[2022-09-04] MEDS ORDERED: SENNA S TABLET1 EACH PO (14:55)
[2022-09-04] MEDS ORDERED: Sucralfate Susp 1GM/10ML PO (14:55)
[2022-09-04] MEDS ORDERED: ELIQUIS5 MG PO (14:55)
[2022-09-04] MEDS ORDERED: COREG3.125 MG PO (14:55)
[2022-09-04] MEDS ORDERED: MEXILETINE HCL200 MG PO (14:55)
[2022-09-04] MEDS ORDERED: ACETAMINOPHEN325 M1 PO (14:55)
[2022-09-04] MEDS ORDERED: POTASSIUM CHLO20 MEQ PO (14:55)
[2022-09-04] MEDS ORDERED: Docusate Sodium PO (14:55)
[2022-09-04] MEDS ORDERED: MIRALAX17 GM PO (14:55)
[2022-09-04] MEDS ORDERED: ASPIRIN CHEW81 MG PO (14:55)
[2022-09-04] MEDS ORDERED: ONDANSETRON HCL 4 MG ORAL DISINTEGRATING TAB PO PRN (15:45)
[2022-09-04] MEDS ORDERED: PANTOPRAZOLE SOD 40 MG TABEC PO SCH (21:00)
== END 2022-09-04 16:20 | disposition home or self-care (01) | DRG 222 ==
LOC: ER 11:30 → ERHOLD 14:16 → MED/SURG 16:11 → ICU 18:04 → MED/SURG3 09-03 18:08
PROVIDERS: ADMIT Internal Medicine; ATTEND Internal Medicine
PROC: 0BH17EZ Insertion of Endotracheal Airway into Trachea, Via Natural or Artificial Opening (ICD-10-PCS; principal; 2022-08-24)
PROC: 5A1945Z Respiratory Ventilation, 24-96 Consecutive Hours (ICD-10-PCS; 2022-08-24)
PROC: 03HB3DZ Insertion of Intraluminal Device into Right Radial Artery, Percutaneous Approach (ICD-10-PCS; 2022-08-25)
PROC: 02HV33Z Insertion of Infusion Device into Superior Vena Cava, Percutaneous Approach (ICD-10-PCS; 2022-08-25)
PROC: 5A12012 Performance of Cardiac Output, Single, Manual (ICD-10-PCS; 2022-08-25)
PROC: 5A2204Z Restoration of Cardiac Rhythm, Single (ICD-10-PCS; 2022-08-25)
PROC: 4A023N7 Measurement of Cardiac Sampling and Pressure, Left Heart, Percutaneous Approach (ICD-10-PCS; 2022-08-28)
PROC: 0BH18EZ Insertion of Endotracheal Airway into Trachea, Via Natural or Artificial Opening Endoscopic (ICD-10-PCS; 2022-08-28)
PROC: 5A1945Z Respiratory Ventilation, 24-96 Consecutive Hours (ICD-10-PCS; 2022-08-28)
PROC: B2111ZZ Fluoroscopy of Multiple Coronary Arteries using Low Osmolar Contrast (ICD-10-PCS; 2022-08-28)
PROC: B2151ZZ Fluoroscopy of Left Heart using Low Osmolar Contrast (ICD-10-PCS; 2022-08-28)
PROC: 5A12012 Performance of Cardiac Output, Single, Manual (ICD-10-PCS; 2022-08-28)
PROC: 5A12012 Performance of Cardiac Output, Single, Manual (ICD-10-PCS; 2022-08-28)
PROC: 5A2204Z Restoration of Cardiac Rhythm, Single (ICD-10-PCS; 2022-08-28)
PROC: 0JH609Z Insertion of Cardiac Resynchronization Defibrillator Pulse Generator into Chest Subcutaneous Tissue and Fascia, Open Approach (ICD-10-PCS; 2022-08-31)
PROC: 02HK3KZ Insertion of Defibrillator Lead into Right Ventricle, Percutaneous Approach (ICD-10-PCS; 2022-08-31)
PROC: 02H63KZ Insertion of Defibrillator Lead into Right Atrium, Percutaneous Approach (ICD-10-PCS; 2022-08-31)
DX: I11.0 Hypertensive heart disease with heart failure (principal); I46.9 Cardiac arrest, cause unspecified; I50.23 Acute on chronic systolic (congestive) heart failure; J96.01 Acute respiratory failure with hypoxia; N17.0 Acute kidney failure with tubular necrosis; I47.29 Other ventricular tachycardia; F11.23 Opioid dependence with withdrawal; I48.92 Unspecified atrial flutter; I42.0 Dilated cardiomyopathy; T40.2X5A Adverse effect of other opioids, initial encounter; I45.81 Long QT syndrome; Z79.01 Long term (current) use of anticoagulants; F14.10 Cocaine abuse, uncomplicated; G89.4 Chronic pain syndrome; F15.10 Other stimulant abuse, uncomplicated; M15.9 Polyosteoarthritis, unspecified; I25.2 Old myocardial infarction; Z86.73 Personal history of transient ischemic attack (TIA), and cerebral infarction without residual deficits; E83.42 Hypomagnesemia; E87.5 Hyperkalemia; E11.65 Type 2 diabetes mellitus with hyperglycemia; F12.10 Cannabis abuse, uncomplicated; F10.10 Alcohol abuse, uncomplicated; I25.10 Atherosclerotic heart disease of native coronary artery without angina pectoris; Z97.8 Presence of other specified devices; E87.6 Hypokalemia; R60.0 Localized edema; R74.01 Elevation of levels of liver transaminase levels; Z75.1 Person awaiting admission to adequate facility elsewhere
CPT/HCPCS: 31500; 33208; 36415; 36600; 71045; 74018; 80048; 80053; 80061; 80307; 81001; 82310; 82550; 82553; 82805; 82948; 83036; 83605; 83735; 83880; 84100; 84132; 84436; 84443; 84479; 84484; 85025; 85610; 85730; 87040; 87086; 92950; 93005; 93306; 93458; 94003; 94660; 94799; 99251; 99284; C1722; C1769; C1777; C1887; C1894; C1898; J0330; J0690; J0696; J1160; J1170; J1580; J1644; J1650; J1817; J1940; J2001; J2250; J2270; J2405; J3010; J3370; J3475; J3480; J7030; J7040; J7050; J7121; Q9967